=== PATIENT | female | born 1950 | race Caucasian/White ===

== ENCOUNTER → 2020-10-04 14:54 | Outpatient (CLI) | payer MEDICARE, OTHER, SELFPAY ==
--- NOTE | 2020-10-04 | CYSPIN_PTH ---
PATIENT: SABA MEJIA LOC: [facility] U#:[id number] AGE/SX: 74/F ROOM: RE10/04/[address]: Dr. Yamilet Martínez MD : 1950 BED: DIS: SPEC #: [id number] RECD: 10/05/20 08:18 STATUS: ZARINA DOMINICK #: [id number] DASIA: 10/04/20 00:[address]: Yamilet Martínez DEPT: CYTOLOGY RECD BY: Mariano Garvey ENTERED: 10/05/20 08:19 SP TYPE: CYSPIN FL SHREE DR: Lazara Barkley, NET LEAD ARCHITECT-C Tissues: Urine Procedures: Pap Stain (control) Special Stain Group II Cytospin Fluid HEADER OPERATION: Not noted PRE-OP DIAGNOSIS: Hematuria TISSUE SUBMITTED: Urine for cytology DIAGNOSIS CYTOLOGY Urine for cytology (cytospin): Negative for malignant cells. See comment. AM:evelin 10/06/2020 COMMENT The specimen primarily contains benign squamous epithelial cells. Clinical correlation is suggested. CYTOLOGY STUDY Slides are reviewed. CYTOLOGY GROSS Received is 40 ml of yellow cloudy fluid labeled with the patient's name and and designated per the requisition as urine. Submitted for cytology preparation. / evelin 10/05/2020 TC:5 CPT: 79842
[2020-10-04 16:39] LABS: Cytology, Body Fluid / CSF SEE PATHOLOGY REPORT
[2020-10-04 18:05] LABS: Creatinine, Serum 0.54 mg/dL (0.55-1.02); EST Glomerular Filtration Rate 119 mL/min (>60); Est Glom Filt Rate - Afr Amer 144 mL/min (>60)
== END ==
PROVIDERS: PCP Nurse Practitioner Adult Health; Referring Provider Urology; Visit Provider Urology
DX: R31.0 Gross hematuria (principal)
CPT/HCPCS: 36415; 82565; 88108; 88313

== ENCOUNTER → 2020-10-09 14:45 | Outpatient (CLI) | payer MEDICARE, OTHER, SELFPAY ==
--- NOTE | 2020-10-09 14:51 | CT_ITS ---
EXAM: CT ABDOMEN AND PELVIS WITHOUT AND WITH INTRAVENOUS CONTRAST : 1950 CLINICAL INDICATION: HEMATURIA TECHNIQUE: Helically acquired images were obtained of the abdomen and pelvis without and with intravenous contrast. This CT exam was performed using one or more of the following dose reduction techniques: automated exposure control, adjustment of the mA and/or kV according to patient size, and/or use of iterative reconstruction technique. This report was created using [employer] report generation technology. CONTRAST: IV 100mL Isovue-300 COMPARISON: None. FINDINGS: LOWER THORAX: Unremarkable. Lung bases are clear. No cardiomegaly. No significant pericardial effusion. ABDOMEN: LIVER: Unremarkable. Homogeneous. No focal mass. GALLBLADDER AND BILE DUCTS: Unremarkable. No calcified gallstones. No gallbladder distention or wall edema. No intra- or extrahepatic biliary ductal dilation. PANCREAS: Unremarkable. No focal cystic or solid mass. SPLEEN: Unremarkable. Normal size without focal cystic or solid mass. ADRENALS: Unremarkable. No nodules. KIDNEYS AND URETERS: There is a 1.3 x 0.7 cm stone in the left renal pelvis. There is no hydronephrosis or obstruction. Normal renal size and position. STOMACH AND BOWEL: Unremarkable. No stomach or bowel distention. No focal inflammatory change. PELVIS: APPENDIX: No evidence of acute appendicitis. BLADDER: Unremarkable. REPRODUCTIVE: Unremarkable as visualized. No mass. ABDOMEN and PELVIS: INTRAPERITONEAL SPACE: Unremarkable. No ascites or other fluid collection. No free air. BONES/JOINTS: Unremarkable. No suspicious lytic or blastic abnormality. SOFT TISSUES: Unremarkable. No discrete abdominal or pelvic wall hernia. VASCULATURE: Unremarkable. Abdominal aorta is non-dilated. LYMPH NODES: Unremarkable. No enlarged lymph nodes. CT/CT Abd/Pelvis W/WO Contrast IMPRESSION: Large stone in the left renal pelvis. There is no evidence of obstruction. No other acute abnormalities are identified. Individualized dose optimization techniques were used for this CT. at 0403 Reported and signed by: Jose Miguel Nunez MD Electronically Signed: Jose Miguel Nunez MD at 4:02 EDT Tel , Service support ,
== END ==
PROVIDERS: PCP Nurse Practitioner Adult Health; Referring Provider Urology; Visit Provider Urology
DX: R31.9 Hematuria, unspecified (principal)
CPT/HCPCS: 74178; Q9967

== ENCOUNTER 2020-10-30 11:27 | Day surgery (SDC) | payer MEDICARE, OTHER, SELFPAY ==
[2020-10-30] VITALS (7 sets, daily range): BP systolic 135–167; BP diastolic 68–104; PULSE 57–89; RESP 16–18; TEMP 35.6–36.6; O2SAT 95–98; BMI 27.0
[2020-10-30] MEDS: Lactated Ringers 1,000 ML 100 ML IV (12:29)
[2020-10-30 12:31] LABS: Hematocrit 43.8 % (37-47); Hemoglobin 14.9 g/dL (12.0-15.0); Mean Corpuscular Hgb 32.4 pg (27.0-32.0); Mean Corpuscular Volume 95.2 fL (81-99); Platelet Count 228 K/mm3 (150-450); RBC Distribution Width CV 12.5 % (11.6-14.6); RBC Distribution Width SD 43.7 fl (35.1-43.9); White Blood Count 6.1 K/mm3 (4.4-11.0)
[2020-10-30 12:47] LABS: Anion Gap 7 (5-15); BUN 16 mg/dL (7-18); BUN/Creat Ratio 28.2 RATIO (10-20); Calcium,Total 9.4 mg/dL (8.5-10.1); Chloride 102 mmol/L (98-107); Creatinine, Serum 0.57 mg/dL (0.55-1.02); EST Glomerular Filtration Rate 111 mL/min (>60); Est Glom Filt Rate - Afr Amer 135 mL/min (>60); Estimated Creatinine Clearance 44.56 ml/min; Glucose 105 mg/dL (74-106); Potassium 3.7 mmol/L (3.5-5.1); Sodium Level 138 mmol/L (136-145)
[2020-10-30] MEDS: Ciprofloxacin 400 MG/200 ML BAG 200 MG IV (13:18)
--- NOTE | 2020-10-30 13:38 | OP.PCM_ITS ---
Problems Associated Problem List Diagnoses (1) Hydronephrosis: Report of Operation Date of Procedure: 10/30/20 Pre-Operative Diagnosis: Left renal calculus, hydronephrosis Post-Operative Diagnosis: Same Surgery/Procedure Performed:: Cystoscopy, left ureteral stent insertion, left renal extracorporal shockwave lithotripsy Surgeon: Yamilet Martínez Type of Anesthesia: General Specimen's removed: none Description of Procedure: The patient is a 70-year-old female found to have a large stone on evaluation for hematuria. She now presents for intervention with cystoscopy, left ureteral stent insertion and extracorporal shockwave lithotripsy of her left renal stone. Informed consent was obtained. The patient was taken the operating room and placed on the operating room table. Anesthesia monitored the head, neck, airway, IV access and vital signs throughout the case. Once anesthesia was appropriate ministered, the patient was placed into dorsal lithotomy position was prepped and draped in usual sterile fashion. The cystoscope was inserted through the urethra under direct visualization into the urinary bladder. The bladder mucosa was visualized in its entirety and found to be without evidence of mass, erythema, ulceration or foreign body. The left ureteral orifice was intubated with a 0.035 Glidewire with curling in the renal pelvis. A 6 [place]i 24 cm JJ stent was passed over the wire with good curling in the renal pelvis as well as the urinary bladder. The patient's bladder was then emptied. The patient was repositioned on the table. The left stones were easily visible and 3000 shocks were applied without complication. The stones appeared to be fragmented at the conclusion of the case, but did seem to be hard. The patient was then awakened and taken to the recovery room in good condition. There were no complications during this procedure. Grafts/Implants Used: 6 x 24 JJ stent Complications none Admit VTE Documentation VTE Present on Admission: Yes VTE Mechan Device Prophylaxis: SCD's VTE Pharm Prophylaxis ordered?: No Reason prophylaxis not ordered:: Treatment Not Indicated
--- NOTE | 2020-10-30 13:42 | DCINST_ITS ---
Discharge Instructions Diet Discharge Diet: No restrictions Activity Discharge Activity: Return to Normal Activity Dressing / Incision Call your doctor if you observe: Fever of 101 or Higher, Inability to urinate, Inability to have a bowel movement and Uncontrolled pain Follow Up Care Please Follow Up With: Yamilet Martínez MD When: in 2-3 weeks in the office with KUB Test Results: Test results from this visit will be discussed in further detail at your follow-up appointment, if applicable. Discharge Plan Admission Attending Provider: Yamilet Martínez Primary Care Provider: Lazara Barkley NP Discharge Orders/Prescriptions Prescriptions: New phenazopyridine [Pyridium] 200 MG tablet 200 mg PO TID PRN PRN (Reason: Bladder Spasms) 7 Days Qty: 30 RF: 0 ciprofloxacin HCl [ciprofloxacin HCl] 500 MG tablet 500 mg PO BID Qty: 6 RF: 0 Continued pravastatin 40 mg tablet 40 mg PO QHS RF: 0 aspirin 81 mg tablet,delayed release (DR/EC) 81 mg PO DAILY RF: 0 losartan-hydrochlorothiazide 100-25 mg tablet 1 tab PO DAILY RF: 0 sertraline 50 mg tablet 50 mg PO DAILY RF: 0 Calcium 600 + D(3) 600 mg calcium- 200 unit Capsule 2 cap PO QODAY RF: 0 coenzyme K60-[id number] E [Co Q-10 (with Vit E)] 100-5 mg-unit capsule 1 cap PO DAILY RF: 0 colostrum, bovine 500 mg Capsule 500 mg PO DAILY RF: 0 turmeric 400 mg Capsule 400 mg PO DAILY RF: 0 Referrals / Follow Up: Lazara Barkley NP, [employer] [Primary Care Provider] - Disposition Disposition (needs filled in before D/C Order can be placed): Home, Self Care
== END 2020-10-30 15:53 | disposition home or self-care (01) ==
LOC: SDC 11:30 → AC 11:31
PROVIDERS: PCP Nurse Practitioner Adult Health; Visit Provider Urology
PROC: (CPT 50590; principal; 2020-10-30 13:55)
DX: N13.2 Hydronephrosis with renal and ureteral calculous obstruction (principal); I10 Essential (primary) hypertension; E78.5 Hyperlipidemia, unspecified; F32.9 Major depressive disorder, single episode, unspecified; E55.9 Vitamin D deficiency, unspecified; M19.90 Unspecified osteoarthritis, unspecified site; Z85.3 Personal history of malignant neoplasm of breast; Z79.82 Long term (current) use of aspirin; Z79.899 Other long term (current) drug therapy
CPT/HCPCS: 00873; 50590; 52332; 80048; 85027; J7120; C2617; J0744; J2405

== ENCOUNTER → 2020-11-16 08:50 | Outpatient (CLI) | payer MEDICARE, OTHER, SELFPAY ==
--- NOTE | 2020-11-16 08:55 | RAD_ITS ---
STUDY: X-RAY - ABDOMEN/PELVIS REASON FOR EXAM: Female, 70 years old. KIDNEY CALCULUS TECHNIQUE: KUB COMPARISON: None. FINDINGS: Normal visualized lung bases. There is an unremarkable bowel gas pattern. There is no demonstrated free abdominal air. The visualized liver, spleen and kidneys are grossly normal in size and morphology. The right kidney appears small. There are multiple stones in the left renal collecting system.. Ureterovesical stent is noted on the left. There appears to be a tiny calculus adjacent to the stent in the pelvis possibly within the ureter. Lumbar spine demonstrates spondylosis. RAD/Abdomen Single View IMPRESSION: Left nephrolithiasis. Status post left ureterovesical stent placement and possible tiny ureteral stone within the distal ureter adjacent to the stent. CT would be helpful for further evaluation if clinically warranted Electronically Signed: Javed Guido MD at 16:52 EDT , Service support ,
== END ==
PROVIDERS: PCP Nurse Practitioner Adult Health; Referring Provider Urology; Visit Provider Urology
DX: N20.0 Calculus of kidney (principal)
CPT/HCPCS: 74018

== ENCOUNTER 2020-12-05 08:06 | Day surgery (SDC) | payer MEDICARE, OTHER, SELFPAY ==
[2020-12-05] VITALS (7 sets, daily range): BP systolic 130–152; BP diastolic 60–75; PULSE 62–73; RESP 16; TEMP 36.2–36.9; O2SAT 93–99; BMI 27.1
[2020-12-05] MEDS: Ciprofloxacin 400 MG/200 ML BAG 200 MG IV (08:45)
--- NOTE | 2020-12-05 08:48 | PCM.HP.STD ---
HPI - General HPI Narrative SABA MEJIA, is a 70 F who presents for cystoscopy, left ureteroscopy, holmium laser lithotripsy and left ureteral stent change. She previously underwent a cystoscopy with left ureteral stent insertion and extracorporal shockwave lithotripsy on the left side. Stones remained along the stent and in the kidney on follow-up KUB. She now presents for definitive management. Informed consent was obtained. [facility] Medical History (Updated 12/05/20 @ 08:[address] Yamilet Martínez MD) Arthritis Breast CA Depression Former smoker History of ulceration Hydronephrosis Hyperlipemia Hypertension Kidney stone Left ureteral calculus Home Medications Calcium 600 + D(3) 2 cap PO QODAY 10/27/20 [History Last Taken Unknown] aspirin 81 mg PO DAILY 10/27/20 [History Last Taken Unknown] coenzyme H33-dyfkoma E [Co Q-10 (with Vit E)] 1 cap PO DAILY 10/27/20 [History Last Taken Unknown] colostrum, bovine 500 mg PO DAILY 10/27/20 [History Last Taken Unknown] losartan-hydrochlorothiazide 1 tab PO DAILY 10/27/20 [History Last Taken Unknown] pravastatin 40 mg PO QHS 10/27/20 [History Last Taken Unknown] sertraline 50 mg PO DAILY 10/27/20 [History Last Taken Unknown] turmeric 400 mg PO DAILY 10/27/20 [History Last Taken Unknown] ciprofloxacin HCl 500 mg PO BID #6 tablet 10/30/20 [Rx Last Taken Unknown] Allergy/AdvReac Type Severity Reaction Status Date / Time Penicillins [PCN] Allergy Other Verified 11/28/20 08:46 Surgical History History of appendectomy History of colonoscopy History of cystoscopy History of gastric surgery History of hysterectomy History of lumpectomy of right breast Social History Smoking Status: Former smoker ROS Constitutional Constitutional: Denies change in weight, chills, fatigue or fever(s) Eyes Eyes: Denies change in vision ENT HEENT: Denies abnormal hearing, dysphagia or loss taste/smell Cardiovascular Cardiovascular: Denies chest pain, dyspnea or edema Respiratory/Chest Respiratory/Chest: Denies change in mental status, cough, difficulty clearing secretions or tachypnea Gastrointestinal Gastrointestinal: Denies abdominal pain, anorexia, change in bowel habits, taste impaired or vomiting Genitourinary Genitourinary: Reports urinary frequency and urinary urgency Musculoskeletal Musculoskeletal: Reports systems reviewed and no addt'l complaints, except as documented Integumentary Integumentary: Reports systems reviewed and no addt'l complaints, except as documented Neurologic Neurologic: Denies abnormal hearing or abnormal movements Psychiatric Psychiatric: Reports systems reviewed and no addt'l complaints, except as documented Endocrine Endocrinology: Reports systems reviewed and no addt'l complaints, except as documented Hematologic/Lymphatic Hematologic/Lymphatic: Reports systems reviewed and no addt'l complaints, except as documented Allergic/Immunologic Allergic/Immunologic: Reports systems reviewed and no addt'l complaints, except as documented Vital Signs Vital Signs Vital Signs: 12/05/20 08:38 Temperature 98.3 F Temperature Source Temporal Pulse Rate 70 Respiratory Rate 16 Respiratory Pattern Normal Blood Pressure 152/67 H Blood Pressure Mean 95 Blood Pressure Source Monitor Blood Pressure Position Sitting Blood Pressure Location Left Arm Pulse Ox 98 Oxygen Delivery Method Room Air Weight Weight: 71.9 kg Body Mass Index (BMI) 27.1 Physical Exam Const alert, oriented x3 and no apparent distress General Appearance: cooperative and comfortable HEENT normocephalic, head/scalp atraumatic, hearing grossly normal bilaterally and external ears normal Nose: external nose normal Mouth: lips normal Eyes General Eye: normal appearance of both eyes Neck supple General: trachea midline Lymph Lymphatic: no lymphedema noted Chest Chest: symmetrical chest wall rise Resp Effort and Inspection: able to speak in complete sentences and symmetric chest movement Cardio regular rate and regular rhythm GI soft to palpation, non-tender and non-distended external exam normal External Female Exam: normal appearance of the urethra Back/Spine General Back: CVA tenderness left Extremity normal to inspection Skin no rashes or lesions noted, no wounds, skin turgor normal, no jaundice, no petechiae and no mottling Neuro oriented x3, CN's II-XII intact bilaterally and moves all extremities Psych mental status grossly normal, thought process normal, cooperative, affect normal and speech normal Assessment & Plan Assessment/Plan (1) Kidney stone: (2) Hydronephrosis: (3) Left ureteral calculus: PLAN: Proceed with cystoscopy, left ureteroscopy holmium laser lithotripsy, left ureteral stent change. Informed consent was obtained. Preoperative culture is negative. Procedure Criteria Type of Procedure Procedure Type: Elective Elective Risks - COVID COVID Risk Discussion: The surgeon/proceduralist and patient have discussed in detail the risk of exposure to and/or potential harm posed by the COVID-19 virus with having a surgery/procedure at this time versus the risk of delaying the surgery/procedure. It is not possible to know either the risk of delaying the surgery or procedure or chance of getting an infection with perfect accuracy, but a joint decision was made between the patient and the surgeon/proceduralist to proceed at this time with the scheduled surgery/procedure as indicated on the consent form.
[2020-12-05] MEDS: Lactated Ringers 1,000 ML 100 ML IV ×2 (08:50→12:08)
--- NOTE | 2020-12-05 09:13 | DCINST_ITS ---
Discharge Instructions Diet Discharge Diet: No restrictions Activity Discharge Activity: Return to Normal Activity May resume sexual activity in: No Restrictions Dressing / Incision Call your doctor if you observe: Fever of 101 or Higher, Inability to urinate, Inability to have a bowel movement and Uncontrolled pain Follow Up Care Please Follow Up With: Yamilet Martínez MD When: this week in office for stent removal Test Results: Test results from this visit will be discussed in further detail at your follow-up appointment, if applicable. Discharge Plan Admission Attending Provider: Yamilet Martínez Primary Care Provider: Lazara Barkley NP Discharge Orders/Prescriptions Prescriptions: New acetaminophen-codeine [acetaminophen-codeine] 1 TABLET tablet 1 - 2 tab PO Q8H PRN PRN (Reason: Pain Score 6-10/10) 5 Days Qty: 10 RF: 0 phenazopyridine [Pyridium] 200 MG tablet 200 mg PO TID PRN PRN (Reason: Bladder Spasms) 7 Days Qty: 30 RF: 0 Continued pravastatin 40 mg tablet 40 mg PO QHS RF: 0 aspirin 81 mg tablet,delayed release (DR/EC) 81 mg PO DAILY RF: 0 losartan-hydrochlorothiazide 100-25 mg tablet 1 tab PO DAILY RF: 0 sertraline 50 mg tablet 50 mg PO DAILY RF: 0 Calcium 600 + D(3) 600 mg calcium- 200 unit Capsule 2 cap PO QODAY RF: 0 coenzyme [id number]-oosusph E [Co Q-10 (with Vit E)] 100-5 mg-unit capsule 1 cap PO DAILY RF: 0 colostrum, bovine 500 mg Capsule 500 mg PO DAILY RF: 0 turmeric 400 mg Capsule 400 mg PO DAILY RF: 0 ciprofloxacin HCl 500 MG tablet 500 mg PO BID Qty: 6 RF: 0 Referrals / Follow Up: Lazara Barkley NP, [employer]TE[employer]ATION ANALYST-C [Primary Care Provider] - Disposition Disposition (needs filled in before D/C Order can be placed): Home, Self Care
--- NOTE | 2020-12-05 11:59 | PCM.OPRPT ---
Problems Associated Problem List Diagnoses (1) Left ureteral calculus: (2) Hydronephrosis: (3) Kidney stone: Report of Operation Date of Procedure: 12/05/20 Pre-Operative Diagnosis: Left ureteral and left renal calculi, hydronephrosis Post-Operative Diagnosis: Same Surgery/Procedure Performed:: Cystoscopy, left ureteroscopy, holmium laser lithotripsy, stone basket extraction, left ureteral stent change Surgeon: Yamilet Martínez Type of Anesthesia: General Specimen's removed: Multiple stone fragments Description of Procedure: The patient is a 70-year-old female status post left ureteral stent and extracorporal shockwave lithotripsy that now presents for stone basket extraction, laser lithotripsy of her remaining stone burden. Her preoperative KUB showed stone in the kidney and alongside the stent. Informed consent was obtained. The patient was taken to the operating room and placed on the operating room table. Anesthesia monitored the head, neck, airway, IV access and vital signs throughout the case. Once anesthesia was appropriately ministered the patient was placed into dorsal lithotomy position was prepped and draped in usual sterile fashion. The cystoscope was inserted through the urethra under direct visualization into the urinary bladder where the left ureteral stent was easily observed. The 0.035 Glidewire was passed alongside the stent with curling visualized within the renal pelvis. A grasping forcep was then used to remove the ureteral stent to the urethral opening at which point a second 0.035 Glidewire was passed through the stent and curled also within the renal pelvis. The second wire was used for passage of the flexible ureteroscope into the ureter. In the mid ureter multiple stone fragments were identified. A 200 ?m fiber was used to laser the stones into smaller pieces which were then basket extracted. There were multiple, over 10 ureteral fragments of stones that were removed and when the ureter was clear, the second safety wire was replaced and used for placement of a ureteral reaccess sheath. At this time the ureteroscope was inserted all the way up into the renal pelvis where in the mid and lower pole multiple fragments were seen. These fragments were all small enough for stone basket extraction. Multiple passes with removal of stone fragments were made until no further stones were identified. The ureteroscope was used to flush each of the calyces which were directly visualized. At this time the ureteroscope was used to directly visualize the entire length of the ureter. The mucosa was edematous without evidence of injury. The reaccessed sheath was removed under direct visualization with the ureteroscope. The remaining safety wire was then used for placement of a 6 [place] 24 cm JJ stent with good curling achieved in the renal pelvis as well as the urinary bladder. The patient's bladder was then emptied and the case was terminated. The stone fragments were sent for pathologic evaluation. The patient was then awakened and taken to the recovery room in good condition. There were no complications during this procedure. Grafts/Implants Used: 6 x 24 JJ stent Complications None Admit VTE Documentation VTE Present on Admission: Yes VTE Mechan Device Prophylaxis: SCD's VTE Pharm Prophylaxis ordered?: No Reason prophylaxis not ordered:: Treatment Not Indicated
[2020-12-05] MEDS: Acetaminophen/Codeine #3 Tablet PO (13:30)
== END 2020-12-05 14:53 | disposition home or self-care (01) ==
LOC: SDC 08:08 → AC 08:09
PROVIDERS: PCP Nurse Practitioner Adult Health; Referring Provider Urology; Visit Provider Urology
PROC: 0TJ98ZZ Inspection of Ureter, Via Natural or Artificial Opening Endoscopic (ICD-10-PCS; CPT 52352; principal; 2020-12-05 09:30)
DX: N13.2 Hydronephrosis with renal and ureteral calculous obstruction (principal); I10 Essential (primary) hypertension; E78.5 Hyperlipidemia, unspecified; F32.A Depression, unspecified; M19.90 Unspecified osteoarthritis, unspecified site; Z85.3 Personal history of malignant neoplasm of breast; Z87.442 Personal history of urinary calculi; Z79.82 Long term (current) use of aspirin; Z79.899 Other long term (current) drug therapy; Z87.891 Personal history of nicotine dependence
CPT/HCPCS: 52356; 76000; 82360; J7120; C2617; J0744; J2405